=== PATIENT | male | born 1985 | race Caucasian/White ===

== ENCOUNTER 2017-03-10 04:11 | Emergency (ER) | payer OTHER ==
[~2017-03-10] VITALS: Ht 177.8 cm; Wt 97.5 kg
[2017-03-10] MEDS ORDERED: BENZ100C PO (04:35)
[2017-03-10] MEDS ORDERED: DEXA4TAB PO (04:35)
[2017-03-10] MEDS ORDERED: AMOX500C PO (04:35)
--- NOTE | 2017-03-10 04:35 | PHYS DOC ---
Adult General Chief Complaint Chief Complaint: SORE THROAT HPI HPI Patient is a 31-year-old male presents with complaints of cough and sore throat that is been going on for over a week. Cough is nonproductive. Patient is also expressing some fullness in both ears and today started developing some redness in the right eye. Patient denies upon swallowing, headache, neck pain or shortness of air. No fevers, chills, rashes. Patient does not have any significant past medical history, has been taking [id number] medication with some relief Review of Systems Review of Systems Constitutional: Denies fever or chills [] Eyes: Denies change in visual acuity, or eye pain. Yes to redness right eye HENT: As per history of present illness Respiratory: As per history of present illness Cardiovascular: No pain GI: Denies abdominal pain, nausea, : Denies dysuria or hematuria [] Musculoskeletal: Denies back pain or joint pain [] Integument: Denies rash or skin lesions [] Neurologic: Denies headache, focal weakness or sensory changes [] Endocrine: Denies polyuria or polydipsia [] All other systems were reviewed and found to be within normal limits, except as documented in this note. Physical Exam Physical Exam Constitutional: Well developed, well nourished, no acute distress, non-toxic appearance. [] HENT: Normocephalic, atraumatic, bilateral external ears normal, right tympanic membrane is clear left tympanic membrane looks dull, no signs of mastoiditis, oropharynx moist and erythematous, no oral exudates , nose normal. Airways patent Eyes: PERRLA, EOMI, conjunctiva normal with the exception of injected conjunctiva of the right eye, no discharge. [] Neck: Normal range of motion, no tenderness, supple, no stridor. No LAD, no meningeal signs Cardiovascular: Normal perfusion Lungs & Thorax: No tachypnea Abdomen: No Distention Skin: Warm, dry, no erythema, no rash. [] Back: No tenderness, no CVA tenderness. [] Extremities: No tenderness, ROM intact, no edema. [] Neurologic: Alert and oriented X 3, normal motor function, ambulates in the ED with normal gait and without assistance, no focal deficits noted. [] Psychologic: Affect normal, judgement normal, mood normal. [] EKG EKG [] Radiology/Procedures Radiology/Procedures [] Course & Med Decision Making Course & Med Decision Making Pertinent Labs and Imaging studies reviewed. (See chart for details) [] Dragon Disclaimer Dragon Disclaimer This electronic medical record was generated, in whole or in part, using a voice recognition dictation system. Departure Departure: Impression: Primary Impression: Conjunctivitis Additional Impressions: Pharyngitis Cough Referrals: PCP,UNKNOWN (PCP) Patient Instructions: Conjunctivitis (Viral and Bacterial), Cough, Adult, Viral and Bacterial Pharyngitis Scripts Dexamethasone (DEXAMETHASONE) 4 Mg Tablet 2 TAB PO DAILY for 1 Day, #2 TAB Prov: Karissa QUICK MD 03/10/17 Benzonatate (TESSALON PERLE) 100 Mg Capsule 100 MG PO TID for 7 Days, #21 CAP Prov: Karissa QUICK MD 03/10/17 Amoxicillin (AMOXICILLIN) 500 Mg Capsule 1 CAP PO TID for 7 Days, #21 CAP Prov: Karissa QUICK MD 03/10/17 Problem Qualifiers Karissa QUICK MD Mar 10, 2017 04:35
[2017-03-10 04:47] VITALS: BP 139/88
== END 2017-03-10 04:47 | disposition home or self-care (01) ==
LOC: ER 04:11
DX: J02.9 Acute pharyngitis, unspecified (principal); H10.9 Unspecified conjunctivitis
CPT/HCPCS: 99283